=== PATIENT | female | born 1930 | race African-American/Black ===

== ENCOUNTER 2018-09-06 14:31 | Emergency (ER) | payer MEDICARE, OTHER ==
[~2018-09-06] VITALS: Ht 162.6 cm; Wt 80.0 kg
[~2018-09-06 14:31] MED LIST: CILO100T; HYDRALAZINE; LATA2.5D2; LEVOTHYROXINE; LISINOPRIL; METFORMIN; TRIA1TAB94
[2018-09-06] MEDS ORDERED: IBUPROFEN 600MG TABLET PO ONE (17:00)
[2018-09-06] MEDS ORDERED: OXYCODONE HCL/ACETAMINOPHEN 5/325MG TABLET PO ONE (17:00)
[2018-09-06 18:11] VITALS: BP 120/68
== END 2018-09-06 18:14 | disposition home or self-care (01) ==
LOC: ER 14:31
DX: S42.292A Other displaced fracture of upper end of left humerus, initial encounter for closed fracture (principal); W01.198A Fall on same level from slipping, tripping and stumbling with subsequent striking against other object, initial encounter; Y93.89 Activity, other specified; Y92.89 Other specified places as the place of occurrence of the external cause
CPT/HCPCS: 73030; 99284; L3670